=== PATIENT | male | born 1975 | race African-American/Black ===

== ENCOUNTER 2021-06-15 14:28 | Emergency (ER) | payer SELFPAY ==
[~2021-06-15] VITALS: Ht 182.9 cm; Wt 65.0 kg
[2021-06-15] MEDS ORDERED: LIDOCAINE HCL/PF 1% 10 MG/ML 5ML VIAL INFIL ONE (15:00)
[2021-06-15] MEDS ORDERED: BACITRACIN ZINC OINT UDPKT TOP ONE (15:00)
[2021-06-15] MEDS ORDERED: ACETAMINOPHEN 325MG TABLET PO ONE (15:00)
[2021-06-15] MEDS ORDERED: TETANUS, DIPHTHERIA, PERTUSSIS VAC/PF 0.5ML (>7YR OLD) IM ONE (15:00)
[2021-06-15] MEDS ORDERED: CHLO473M2 MT (16:05)
[2021-06-15] MEDS ORDERED: ACET-2708 MT (16:05)
[2021-06-15] MEDS ORDERED: CEPH500C2 MT (16:05)
[2021-06-15 16:16] VITALS: BP 148/75
== END 2021-06-15 16:17 | disposition home or self-care (01) ==
LOC: ER 14:28
DX: S01.511A Laceration without foreign body of lip, initial encounter (principal); W22.8XXA Striking against or struck by other objects, initial encounter; Y93.89 Activity, other specified; Y92.89 Other specified places as the place of occurrence of the external cause; Y99.8 Other external cause status; F10.129 Alcohol abuse with intoxication, unspecified; Y90.9 Presence of alcohol in blood, level not specified
CPT/HCPCS: 12011; 90471; 90715; 99283; J3490; Z7610